=== PATIENT | female | born 1995 | race African-American/Black ===

== ENCOUNTER 2023-05-10 09:49 | Emergency (ER) | payer OTHER ==
[~2023-05-10] VITALS: Ht 175.3 cm; Wt 72.0 kg
[2023-05-10 09:59] VITALS: PULSE 88; RESP 16
[2023-05-10 10:11] VITALS: BP 127/76; TEMP 98.3; O2SAT 100
[2023-05-10] MEDS ORDERED: LEVO1.5T37 MT (10:47)
[2023-05-10] MEDS ORDERED: DOXY100T2 MT (10:47)
[2023-05-12 04:09] LABS: CHLAMYDIA TRACHOMATIS NAA Negative (Negative); NEISSERIA GONORRHOEAE NAA Negative (Negative)
== END 2023-05-10 13:06 | disposition home or self-care (01) ==
LOC: ER 10:18
DX: T76.21XA Adult sexual abuse, suspected, initial encounter (principal); Z98.890 Other specified postprocedural states; Z88.0 Allergy status to penicillin; X58.XXXA Exposure to other specified factors, initial encounter; Y93.89 Activity, other specified; Y92.89 Other specified places as the place of occurrence of the external cause; Y99.8 Other external cause status
CPT/HCPCS: 81025; 87491; 87591; 99283